=== PATIENT | male | born 1975 | race Caucasian/White ===

== ENCOUNTER 2021-01-16 17:43 | Emergency (ER) | payer SELFPAY ==
[2021-01-16 17:47] VITALS: BP 146/92; PULSE 85; RESP 18; TEMP 36.9; O2SAT 97
[2021-01-16 18:29] LABS: Add Manual Diff / Slide Review NO; Basophils Absolute Auto 0 /uL (0-100); Basophils Percent Auto 0.4 % (0-2); Eosinophils Absolute Auto 100 /uL (0-450); Eosinophils Percent Auto 0.7 % (2-4); Hematocrit 38.4 % (41-53); Hemoglobin 13.1 g/dL (13.5-17.5); Lymphocytes Absolute Auto 1600 /uL (1100-4500); Lymphocytes Percent Auto 21.3 % (25-40); Mean Corpuscular Hemoglobin 30.4 PG (26-34); Mean Corpuscular Volume 89.3 fL (80-100); Monocytes Absolute Auto 400 /uL (0-900); Monocytes Percent Auto 5.5 % (3-14); Neutrophils Absolute Auto 5400 /uL (1500-7000); Neutrophils Percent Auto 72.1 % (50-75); Platelet Count 447 X10^3/uL (150-400); Red Cell Distribution Width 13.1 % (11.6-14.8); White Blood Cell Count 7.5 X10^3/uL (4.5-11.0)
[2021-01-16 18:34] LABS: Acetaminophen < 10 ug/mL (10-30); Alanine Aminotransferase 14 IU/L (<50); Albumin 4.6 g/dL (3.5-5.0); Albumin Globulin Ratio 1.5 (1.0-2.8); Alkaline Phosphatase 56 U/L (38-126); Aspartate Aminotransferase 19 IU/L (17-59); BUN Creatinine Ratio 13.8 (6-22); Bilirubin Total 1.7 mg/dL (0.2-1.3); Blood Urea Nitrogen 9 mg/dL (9-20); Calcium 9.5 mg/dL (8.4-10.2); Carbon Dioxide 27 mmol/L (22-32); Chloride 103 mmol/L (98-107); Estimated Glomerular Filt Rate > 60.0 mL/min (>60); Ethanol (ETOH) < 10 mg/dL; Glucose 106 mg/dL (70-100); HEMOLYSIS < 15 (0-50); Potassium 3.7 mmol/L (3.4-5.1); Salicylate < 1.0 mg/dL (<20); Sodium 138 mmol/L (137-145); Total Protein 7.6 g/dL (6.3-8.2)
[2021-01-16 18:57] LABS: Free T4, Direct Thyroxine 1.32 ng/dL (0.78-2.19)
--- NOTE | 2021-01-16 19:10 | ED_ITS ---
HPI - Psych General Chief Complaint: Psychiatric Symptoms Stated Complaint: S I Time Seen by Provider: 01/16/21 17:57 Source: patient Mode of arrival: Ambulatory History of Present Illness HPI Narrative: Patient is a 45-year-old male. Does not currently take any medications for depression and anxiety. When he was a child did have a suicide attempt. He does not currently see a mental health provider. He is here with a friend. Over the past week or so the patient has had increasing depression anxiety. Related to a relationship issue. Patient was at the [employer] past bridge today. When a friend of his happened to drive by and see him. His friend pulled over to check on him. He is here in the emergency department with this friend. Patient states that he was contemplating killing himself. He stated things seem to ?spiral ?out of control today. He did not know what to do and felt like things were just becoming more more out of control. He does feel better now compared to earlier today. He was somewhat reluctant to discuss the issues with the relationship that provoke the symptoms today. Does not seem to be an inciting event today the cause the symptoms just the overall general sensation. Related Data Allergies Allergy/AdvReac Type Severity Reaction Status Date / Time No Known Drug Allergies Allergy Verified 01/16/21 17:49 Review of Systems Cardiovascular Cardiovascular: Reports system reviewed and no additional complaints, except as documented Respiratory Respiratory: Reports system reviewed and no additional complaints, except as documented Gastrointestinal Gastrointestinal: Reports system reviewed and no additional complaints, except as documented Neurologic Neurologic: Reports system reviewed and no additional complaints, except as documented Psychiatric Psychiatric: Reports system reviewed and no additional complaints, except as documented and Reports as per HPI Hematologic/Lymphatic On Anticoagulants: No Patient History Medical History (Updated 01/17/21 @ 03:38 by Dani Morocho DO) Depression Social History Smoking Status: Current every day smoker Smoking Status: Current every day smoker alcohol intake frequency: 0-2 drinks per day Exam Initial Vital Signs Initial Vital Signs: Vital Signs Temperature 98.4 F 01/16/21 17:47 Pulse Rate 85 01/16/21 17:47 Respiratory Rate 18 01/16/21 17:47 Blood Pressure 146/92 H 01/16/21 17:47 Pulse Oximetry 97 01/16/21 17:47 Const General: cooperative, healthy appearing and comfortable [facility] Head: normal to inspection and normocephalic Resp Effort & Inspection: normal respiratory effort Cardio Rate: regular rate GI Inspection: normal to inspection Skin Lesions: no lesions Rashes: no rashes Neuro General: patient alert, patient awake and patient oriented x3 Psych Appearance: grossly normal and well kempt Speech and Movement: speech and movement normal Mood: congruent mood Affect: blunted Attitude: cooperative Thought Process: normal Judgment: judgment good Course Orders Ordered: ED Orders 01/16/21 19:21 Urinalysis and Microscopic Stat Urine Drug Screen, Rapid Stat Vital Signs Vital signs: Vital Signs - 8 hr 01/16/21 17:47 Temperature 98.4 F Pulse Rate 85 Respiratory Rate 18 Blood Pressure 146/92 H Pulse Oximetry 97 MDM - Psych Lab Data Attestation: I reviewed the patient's lab results. Result diagrams: 01/16/21 18:10 01/16/21 18:10 Labs: Lab Results 01/16/21 01/16/21 01/16/21 Range/Units 18:10 18:10 18:10 WBC 7.5 (4.5-11.0) X10^3/uL RBC 4.30 L (4.5-5.9) X10^6/uL Hgb 13.1 L (13.5-17.5) g/dL Hct 38.4 L (41-53) % MCV 89.3 (80-100) fL MCH 30.4 (26-34) PG MCHC 34.0 (30-36) % RDW 13.1 (11.6-14.8) % Plt Count 447 H (150-400) X10^3/uL Neut % (Auto) 72.1 (50-75) % Lymph % (Auto) 21.3 L (25-40) % Barren % (Auto) 5.5 (3-14) % Eos % (Auto) 0.7 L (2-4) % Baso % (Auto) 0.4 (0-2) % Neut # (Auto) 5400 (6761-0465) /uL Lymph # (Auto) 1600 (4806-9987) /uL Barren # (Auto) 400 (0-900) /uL Eos # (Auto) 100 (0-450) /uL Baso # (Auto) 0 (0-100) /uL Sodium 138 (137-145) mmol/L Potassium 3.7 (3.4-5.1) mmol/L Chloride 103 (98-107) mmol/L Carbon Dioxide 27 (22-32) mmol/L BUN 9 (9-20) mg/dL Creatinine 0.65 L (0.66-1.25) mg/dL Estimated GFR > 60.0 (>60) mL/min BUN/Creatinine Ratio 13.8 (6-22) Glucose 106 H (70-100) mg/dL Calcium 9.5 (8.4-10.2) mg/dL Total Bilirubin 1.7 H (0.2-1.3) mg/dL AST 19 (17-59) IU/L ALT 14 (<50) IU/L Alkaline Phosphatase 56 (38-126) U/L Total Protein 7.6 (6.3-8.2) g/dL Albumin 4.6 (3.5-5.0) g/dL Globulin 3.0 (1.7-4.1) g/dL Albumin/Globulin Ratio 1.5 (1.0-2.8) TSH 0.430 L (0.47-4.68) uIU/mL Free T4 1.32 (0.78-2.19) ng/dL Urine Color Urine Appearance Urine pH (4.5-8.0) Ur Specific [place] (1.000-1.035) Urine Protein (Negative) Urine Glucose (UA) (Negative) g/dL Urine Ketones (NEGATIVE) Urine Occult Blood (Negative) Urine Nitrate (Negative) Urine Bilirubin (NEGATIVE) Urine Urobilinogen (0.2) E.U./dL Ur Leukocyte Esterase (NEGATIVE) Urine RBC (0-5/HPF) Urine WBC (0-5/HPF) Urine Bacteria (None) Urine Mucus (Negative) Ur Culture Indicated? Salicylates < 1.0 (<20) mg/dL U Opiates 300ng/mL cut (Negative) Ur Oxycodone Screen (Negative) Urine Methadone Screen (Negative) Acetaminophen < 10 L (10-30) ug/mL Ur Barbiturates Screen (Negative) U Tricyclic Antidepress (Negative) Ur Phencyclidine Scrn (Negative) Ur Amphetamines Screen (Negative) U Methamphetamines Scrn (Negative) Ur MDMA Scrn (Ecstasy) (Negative) U Benzodiazepines Scrn (Negative) Urine Cocaine Screen (Negative) U Marijuana (THC) Screen (Negative) Ethyl Alcohol < 10 ( - 10) mg/dL 01/16/21 01/16/21 Range/Units 19:21 19:21 WBC (4.5-11.0) X10^3/uL RBC (4.5-5.9) X10^6/uL Hgb (13.5-17.5) g/dL Hct (41-53) % MCV (80-100) fL MCH (26-34) PG MCHC (30-36) % RDW (11.6-14.8) % Plt Count (150-400) X10^3/uL Neut % (Auto) (50-75) % Lymph % (Auto) (25-40) % Barren % (Auto) (3-14) % Eos % (Auto) (2-4) % Baso % (Auto) (0-2) % Neut # (Auto) (5426-7894) /uL Lymph # (Auto) (2473-4453) /uL Barren # (Auto) (0-900) /uL Eos # (Auto) (0-450) /uL Baso # (Auto) (0-100) /uL Sodium (137-145) mmol/L Potassium (3.4-5.1) mmol/L Chloride (98-107) mmol/L Carbon Dioxide (22-32) mmol/L BUN (9-20) mg/dL Creatinine (0.66-1.25) mg/dL Estimated GFR (>60) mL/min BUN/Creatinine Ratio (6-22) Glucose (70-100) mg/dL Calcium (8.4-10.2) mg/dL Total Bilirubin (0.2-1.3) mg/dL AST (17-59) IU/L ALT (<50) IU/L Alkaline Phosphatase (38-126) U/L Total Protein (6.3-8.2) g/dL Albumin (3.5-5.0) g/dL Globulin (1.7-4.1) g/dL Albumin/Globulin Ratio (1.0-2.8) TSH (0.47-4.68) uIU/mL Free T4 (0.78-2.19) ng/dL Urine Color Yellow Urine Appearance Clear Urine pH 5.5 (4.5-8.0) Ur Specific [place] 1.025 (1.000-1.035) Urine Protein Trace H (Negative) Urine Glucose (UA) Trace H (Negative) g/dL Urine Ketones Negative (NEGATIVE) Urine Occult Blood 1+ H (Negative) Urine Nitrate Negative (Negative) Urine Bilirubin Negative (NEGATIVE) Urine Urobilinogen 0.2 (0.2) E.U./dL Ur Leukocyte Esterase Negative (NEGATIVE) Urine RBC 1-5/hpf (0-5/HPF) Urine WBC None seen (0-5/HPF) Urine Bacteria None seen (None) Urine Mucus 2+ H (Negative) Ur Culture Indicated? Cult not indicated Salicylates (<20) mg/dL U Opiates 300ng/mL cut Negative (Negative) Ur Oxycodone Screen Negative (Negative) Urine Methadone Screen Negative (Negative) Acetaminophen (10-30) ug/mL Ur Barbiturates Screen Negative (Negative) U Tricyclic Antidepress Negative (Negative) Ur Phencyclidine Scrn Negative (Negative) Ur Amphetamines Screen Negative (Negative) U Methamphetamines Scrn Negative (Negative) Ur MDMA Scrn (Ecstasy) Negative (Negative) U Benzodiazepines Scrn Negative (Negative) Urine Cocaine Screen Negative (Negative) U Marijuana (THC) Screen Negative (Negative) Ethyl Alcohol ( - 10) mg/dL MDM Narrative Medical decision making narrative: Patient was seen by social work. He feels like he does not need admitted to the hospital. He states he does feel better than what he did earlier when he was standing [place] to the bridge. Given his current situation in his statements that do not feel that he would meet the requirements for an involuntary admission. His friend is at bedside. His friend states that either he is going to spend the night with the patient or the patient would spend the night with him. Patient was seen by social work. Patient specifically stated that the reason he was in that situation is because things were spiraling out of control and he felt hopeless and he did not know what to do. He felt reassured by the information that we provided him. Social work was able to set up a phone call tomorrow with [facility] to check on the patient. Social work will also contact him tomorrow. Patient was also reassured and stated that he could return to the emergency department at any point. He felt better about this knowing that there was something that he could do with the situation worsen. He stated that he would contact someone prior to hurting himself. He was okay with being discharged. He was given return precautions. Expressed understanding and agreement. Patient was alert oriented x3. GCS of 15 and in my opinion had capacity to make decisions. Discharge Plan Departure Patient Disposition: Home Clinical Impression: Depression, Suicidal ideation Instructions: DI for Suicidal Ideation-Adult Activity Restrictions/Additional Instructions: The high school social science teacher that use all this evening set up a phone call from the [facility] team to give you a call tomorrow to see how you are doing. She will also give you a call tomorrow. The emergency department here is open 24 hours a day 7 days a week if you need to come back and see us in I encourage you to do so if you start have thoughts of hurting yourself once again. I recommend that you stay with a friend this evening.
[2021-01-16 19:25] LABS: Appearance Urine UA CLEAR; Bilirubin Urine UA NEGATIVE (NEGATIVE); Color Urine UA YELLOW; Glucose Urine UA TRACE g/dL (Negative); Ketones Urine UA NEGATIVE (NEGATIVE); Leukocyte Esterase Urine UA NEGATIVE (NEGATIVE); Nitrite Urine UA NEGATIVE (Negative); Occult Blood Urine UA 1+ (Negative); Protein Urine UA TRACE (Negative); Specific Gravity Urine UA 1.025 (1.000-1.035); Urobilinogen Urine UA 0.2 E.U./dL (0.2); pH Urine UA 5.5 (4.5-8.0)
[2021-01-16 19:28] VITALS: BP 130/84; PULSE 72; RESP 17; O2SAT 96
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
[2021-01-16 19:34] LABS: UR Morphine/Opiate cutoff 300 Negative (Negative); Ur Creatinine Normal (Normal); Ur Specific Gravity Normal (Normal); Urine Amphetamines Negative (Negative); Urine Barbiturates Negative (Negative); Urine Benzodiazepines Negative (Negative); Urine Cocaine Negative (Negative); Urine MDMA Negative (Negative); Urine Methadone Negative (Negative); Urine Methamphetamines Negative (Negative); Urine Oxycodone Negative (Negative); Urine Phencyclidine Negative (Negative); Urine Tetrahydrocannabinol Negative (Negative); Urine Tricyclic Antidepressant Negative (Negative); Urine pH Normal (Normal)
[2021-01-16 19:40] LABS: RBC Urine 1-5/HPF (0-5/HPF); WBC Urine None Seen (0-5/HPF)
[2021-01-16 19:41] LABS: Bacteria Urine None Seen; Culture Indicated Urine Cult Not Indicated
[2021-01-16 19:42] LABS: Mucus Urine 2+ (Negative)
--- NOTE | 2021-01-18 17:09 | CM.SWNOTE ---
Addendum entered by Dasia Victoria 01/22/21 19:03: [employer] F/U Note [employer] calls patient for a second f/u call. Patient reports that he is feeling alright and states his anxiety is off and on. Patient denies SI. Patient endorses he continues to seek a therapist. WO[employer] WO[employer] LABOURER encourages patient to continue to reach out to his supports while he seeks a therapist. Patient denies need for further [facility] f/u calls. MAHSA Lima Original Note: [employer]ER f/u Note Dasia Victoria 01/18/21 15:26 PDT: Call Status - Attempted Call Action - Pt. Not Available/Left Message [employer] LABOURER calls patient and leaves requesting return call. MAHSA Lima Lauren 01/18/21 17:06 PDT: Call Action - Call Status - Completed [employer]ER receives call back from patient. Patient reports that he has been in close contact with his supports and has been trying to establish care with therapists but has not had any luck. WO[employer] WO[employer]ODU[employer] LABOURER suggests the [facility] IOP program and patient suggests the [facility]. Patient indicates he will f/u with these options soon. [employer] LABOURER offers to f/u with patient tomorrow or next Friday, patient indicates a f/u call next Friday will be appreciated. Patient endorses he had today off work and will be working the next few days. WO[employer] LABOURER suggests enjoyable activities while working so patient can listen to music, an audio book or podcasts. Patient indicates agreement. Plan: [employer]ER to f/u with patient on 01/22/21 MAHSA Lima
== END 2021-01-16 19:45 | disposition home or self-care (01) ==
PROVIDERS: Emergency Provider Emergency Medicine
DX: R45.851 Suicidal ideations (principal)
CPT/HCPCS: 36415; 80053; 80305; 80320; 80329; 81001; 84439; 84443; 85025; 99283; 99284; G0480